=== PATIENT | female | born 1990 | race Caucasian/White ===

== ENCOUNTER 2016-08-06 19:05 | Emergency (ER) | payer BC ==
[2016-08-06] MEDS ORDERED: Sodium Chloride 0.9% 1,000 ML IV ONE ×2 (19:28→20:22)
[2016-08-06] MEDS ORDERED: Ondansetron 4 MG/2 ML SDV IVPUSH ONE (19:29)
--- NOTE | 2016-08-06 19:31 | EDM.PDOC ---
ED HPI GI/ABDOMINAL - General Chief Complaint: Gastrointestinal Problem Stated Complaint: VOMITING Time Seen by Provider: 08/06/16 19:15 Source of Information: Reports: Patient History Limitations: Reports: No limitations - History of Present Illness INITIAL COMMENTS - FREE TEXT/NARRATIVE: Presents reporting a 12 hour history of nausea vomiting, diarrhea, headache. He denies abdominal pain or fever, personal or family history of renal stones, dysuria, , ill contacts, unusual or different food ingestion or foreign travel. Her daughter had the same symptoms for short time on Friday. - Related Data Allergies/ADRs: Allergies Allergy/AdvReac Type Severity Reaction Status Date / Time Penicillins Allergy Airway Verified 08/06/16 19:12 Tightness Home Meds: Home Meds . [No Known Home Meds] 08/06/16 [History] Past Medical History - Past Health History Medical/Surgical History: Denies Medical/Surgical History Respiratory History: Reports: Asthma, Bronchitis, recurrent Psychiatric History: Reports: Depression - Infectious Disease History Infectious Disease History: Reports: Chicken pox Social & Family History - Family History Cardiac: Reports: High cholesterol, Hypertension Musculoskeletal: Reports: Other (see below) Other Musculoskeletal Family History: multiple sclurosis Neurological: Reports: Alzheimers disease - Tobacco Use Smoking Status *Q: Never Smoker - Recreational Drug Use Recreational Drug Use: No ED ROS GENERAL - Review of Systems Review Of Systems: ROS reveals no pertinent complaints other than HPI. ED EXAM, GI/ABD - Physical Exam Exam: See Below Exam Limited By: No limitations General Appearance: alert, no apparent distress Ears: normal external exam Nose: normal inspection Throat/Mouth: Normal inspection Head: atraumatic, normocephalic Neck: normal inspection Respiratory/Chest: no respiratory distress, lungs clear, normal breath sounds Cardiovascular: normal peripheral pulses, regular rate, rhythm, no murmur GI/Abdominal: soft, no distention, tenderness (mild diffuse--mostly lower which she relates to retching). No: guarding, rebound, rigidity Back Exam: normal inspection Extremities: normal inspection Neurological: alert, oriented Psychiatric: normal affect, normal mood Skin Exam: Warm, Dry, Intact, Normal color, No rash Lymphatic: no adenopathy Course - Vital Signs Last Recorded V/S: Last Vital Signs Temp 36.6 C 08/06/16 19:14 Pulse 87 08/06/16 19:14 Resp 16 08/06/16 19:14 BP 123/67 08/06/16 19:14 Pulse Ox 98 08/06/16 19:14 - Orders/Labs/Meds Orders: Active Orders 24 hr Category Date Time Status Sodium Chloride 0.9% [Normal Saline] 1,000 ml Med 08/06/16 19:28 Ordered IV .BOLUS Medication Orders Sodium Chloride (Normal Saline) 1,000 mls @ 999 mls/hr IV .BOLUS ONE Stop: 08/06/16 20:28 Last Admin: 08/06/16 19:49 Dose: 999 mls/hr Labs: Laboratory Tests 08/06/16 08/06/16 08/06/16 Range/Units 19:20 19:20 19:20 WBC 8.17 (4.0-11.0) K/uL RBC 4.30 (4.30-5.90) M/uL Hgb 13.2 (12.0-16.0) g/dL Hct 38.5 (36.0-46.0) % MCV 89.5 (80.0-98.0) fL MCH 30.7 (27.0-32.0) pg MCHC 34.3 (31.0-37.0) g/dL RDW Std Deviation 42.1 (28.0-62.0) fl RDW Coeff of Daniel 13 (11.0-15.0) % Plt Count 178 (150-400) K/uL MPV 10.80 (7.40-12.00) fL Neut % (Auto) 89.4 H (48.0-80.0) % Lymph % (Auto) 4.7 L (16.0-40.0) % Granite % (Auto) 5.8 (0.0-15.0) % Eos % (Auto) 0.0 (0.0-7.0) % Baso % (Auto) 0.1 (0.0-1.5) % Neut # 7.3 H (1.4-5.7) K/uL Lymph # 0.4 L (0.6-2.4) K/uL Granite # 0.5 (0.0-0.8) K/uL Eos # 0.0 (0.0-0.7) K/uL Baso # 0.0 (0.0-0.1) K/uL Nucleated RBC % 0.0 /100WBC Nucleated RBCs # 0 K/uL Sodium 139 (136-146) mmol/L Potassium 3.7 (3.5-5.1) mmol/L Chloride 107 (98-110) mmol/L Carbon Dioxide 21 (21-31) mmol/L BUN 11 (6.0-23.0) mg/dL Creatinine 0.7 (0.6-1.5) mg/dL Est Cr Clr Drug Dosing 117.39 mL/min Estimated GFR (MDRD) > 60.0 ml/min Glucose 125 H (60-110) mg/dL Calcium 8.9 (8.8-10.8) mg/dL Total Bilirubin 0.9 (0.1-1.5) mg/dL AST 12 (5-40) IU/L ALT 9 (8-54) IU/L Alkaline Phosphatase 60 (40-150) Total Protein 7.3 (6.0-8.0) g/dL Albumin 4.0 (3.5-5.0) g/dL Globulin 3.3 (2.0-3.5) g/dL Albumin/Globulin Ratio 1.2 L (1.3-2.8) Lipase 20 (7-80) U/L Urine Color Urine Appearance Urine pH (5.0-8.0) Ur Specific Belle (1.001-1.035) Urine Protein (NEGATIVE) mg/dL Urine Glucose (UA) (NEGATIVE) mg/dL Urine Ketones (NEGATIVE) mg/dL Urine Occult Blood (NEGATIVE) Urine Nitrite (NEGATIVE) Urine Bilirubin (NEGATIVE) Urine Urobilinogen (<2.0) EU/dL Ur Leukocyte Esterase (NEGATIVE) Urine RBC (0-2/HPF) Urine WBC (0-5/HPF) Ur Epithelial Cells (NONE-FEW) Urine Bacteria (NEGATIVE) Urine HCG, Qual NEGATIVE (NEGATIVE) 08/06/16 Range/Units 19:20 WBC (4.0-11.0) K/uL RBC (4.30-5.90) M/uL Hgb (12.0-16.0) g/dL Hct (36.0-46.0) % MCV (80.0-98.0) fL MCH (27.0-32.0) pg MCHC (31.0-37.0) g/dL RDW Std Deviation (28.0-62.0) fl RDW Coeff of Daniel (11.0-15.0) % Plt Count (150-400) K/uL MPV (7.40-12.00) fL Neut % (Auto) (48.0-80.0) % Lymph % (Auto) (16.0-40.0) % Granite % (Auto) (0.0-15.0) % Eos % (Auto) (0.0-7.0) % Baso % (Auto) (0.0-1.5) % Neut # (1.4-5.7) K/uL Lymph # (0.6-2.4) K/uL Granite # (0.0-0.8) K/uL Eos # (0.0-0.7) K/uL Baso # (0.0-0.1) K/uL Nucleated RBC % /100WBC Nucleated RBCs # K/uL Sodium (136-146) mmol/L Potassium (3.5-5.1) mmol/L Chloride (98-110) mmol/L Carbon Dioxide (21-31) mmol/L BUN (6.0-23.0) mg/dL Creatinine (0.6-1.5) mg/dL Est Cr Clr Drug Dosing mL/min Estimated GFR (MDRD) ml/min Glucose (60-110) mg/dL Calcium (8.8-10.8) mg/dL Total Bilirubin (0.1-1.5) mg/dL AST (5-40) IU/L ALT (8-54) IU/L Alkaline Phosphatase (40-150) Total Protein (6.0-8.0) g/dL Albumin (3.5-5.0) g/dL Globulin (2.0-3.5) g/dL Albumin/Globulin Ratio (1.3-2.8) Lipase (7-80) U/L Urine Color YELLOW Urine Appearance CLEAR Urine pH 5.5 (5.0-8.0) Ur Specific Belle >= 1.030 (1.001-1.035) Urine Protein TRACE (NEGATIVE) mg/dL Urine Glucose (UA) NEGATIVE (NEGATIVE) mg/dL Urine Ketones 40 H (NEGATIVE) mg/dL Urine Occult Blood SMALL H (NEGATIVE) Urine Nitrite NEGATIVE (NEGATIVE) Urine Bilirubin SMALL H (NEGATIVE) Urine Urobilinogen 1.0 (<2.0) EU/dL Ur Leukocyte Esterase NEGATIVE (NEGATIVE) Urine RBC 0-3 (0-2/HPF) Urine WBC 1-3 (0-5/HPF) Ur Epithelial Cells FEW (NONE-FEW) Urine Bacteria FEW (NEGATIVE) Urine HCG, Qual (NEGATIVE) Meds: Medications Generic Name Dose Route Start Last Admin Trade Name Freq PRN Reason Stop Dose Admin Sodium Chloride 1,000 mls @ 999 mls/hr 08/06/16 19:28 08/06/16 19:49 Normal Saline IV 08/06/16 20:28 999 mls/hr .BOLUS ONE Administration Discontinued Medications Generic Name Dose Route Start Last Admin Trade Name Freq PRN Reason Stop Dose Admin Ondansetron HCl 4 mg 08/06/16 19:29 08/06/16 19:49 Zofran IVPUSH 08/06/16 19:30 4 mg ONETIME ONE Administration Departure - Departure Time of Disposition: 20:16 Disposition: Home, Self-Care 01 Clinical Impression: Vomiting and diarrhea Forms: ED Department Discharge Additional Instructions: 1. Drink plenty of oral fluids including sports drinks. Advance slowly to BRAT diet (bananas, rice, applesauce, toast) diet advance to regular as tolerated 2. Zofran one every 8 hours as needed for nausea and vomiting 3. return for inability to keep oral fluids down, fevers, abdominal pain or pain with urination. - My Orders Last 24 Hours: My Active Orders 08/06/16 19:28 Sodium Chloride 0.9% [Normal Saline] 1,000 ml IV .BOLUS - Assessment/Plan Last 24 Hours: My Active Orders 08/06/16 19:28 Sodium Chloride 0.9% [Normal Saline] 1,000 ml IV .BOLUS
[2016-08-06 19:59] LABS: CHLORIDE,CL 107 mmol/L (98-110); SODIUM,NA 139 mmol/L (136-146)
[2016-08-06 20:55] VITALS: BP 105/50
== END 2016-08-06 20:53 | disposition home or self-care (01) ==
LOC: MW.ED 19:05
DX: R11.2 Nausea with vomiting, unspecified (principal); R51 Headache; R19.7 Diarrhea, unspecified; Z88.0 Allergy status to penicillin
CPT/HCPCS: 36415; 80053; 81001; 81025; 83690; 85025; 96361; 96374; 99284; J2405; J7040; 99283

== ENCOUNTER → 2016-08-16 | Outpatient (CLI) | payer BC ==
--- NOTE | 2016-08-16 16:42 | CR ---
EXAMINATION: Soft tissue neck HISTORY: Dysphonia COMPARISON: None TECHNIQUE: AP and lateral views FINDINGS: The epiglottis appears normal. The pretracheal soft tissues are within normal limits. The adenoid soft tissues appear normal. The visualized osseous structures are unremarkable. The subglott ic trachea is normal in caliber. IMPRESSION: Unremarkable soft tissue neck.
== END ==
LOC: MW.CHFP 09:30
PROVIDERS: ATTEND Student in an Organized Health Care Education/Training Program
DX: R49.0 Dysphonia (principal); J02.9 Acute pharyngitis, unspecified
CPT/HCPCS: 70360; 70360-26; 87081; 87880

== ENCOUNTER 2017-03-24 14:21 | Day surgery (SDC) | payer BC ==
[2017-03-24] MEDS ORDERED: Lactated Ringers 1,000 ML IV SCH (14:30)
--- NOTE | 2017-03-24 14:50 | PCM.PREANE ---
Preanesthetic Assessment - Anesthesia/Transfusion/Family Hx Anesthesia History: No Prior Anesthesia Family History of Anesthesia Reaction: No Transfusion History: No Prior Transfusion(s) - Review of Systems General: No Symptoms Pulmonary: No Symptoms Cardiovascular: No Symptoms Gastrointestinal: No Symptoms Neurological: No Symptoms Other: Reports: Anxiety - Physical Assessment NPO Status Date: 03/24/17 (0600 pumpkin bread) O2 Sat by Pulse Oximetry: 100 Respiratory Rate: 16 Vital Signs: Last Vital Signs Temp 37.0 C 03/24/17 14:44 Pulse 70 03/24/17 14:44 Resp 16 03/24/17 14:44 BP 97/53 L 03/24/17 14:44 Pulse Ox 100 03/24/17 14:44 Height: 1.65 m Weight: 74.843 kg ASA Class: 2 Mental Status: Alert & Oriented x3 Airway Class: Mallampati = 2 Dentition: Reports: Normal Dentition ROM/Head Extension: Full Lungs: Clear to Auscultation, Normal Respiratory Effort Cardiovascular: Regular Rate, Regular Rhythm - Allergies Allergies/Adverse Reactions: Allergies Allergy/AdvReac Type Severity Reaction Status Date / Time Penicillins Allergy Itching Verified 03/24/17 12:25 - Anesthesia Plan Pre-Op Medication Ordered: None - Acknowledgements Anesthesia Type Planned: General Anesthesia Pt an Appropriate Candidate for the Planned Anesthesia: Yes Alternatives and Risks of Anesthesia Discussed w Pt/Guardian: Yes Pt/Guardian Understands and Agrees with Anesthesia Plan: Yes PreAnesthesia Questionnaire - Past Health History Medical/Surgical History: Denies Medical/Surgical History HEENT History: Reports: None Other HEENT History: wears glasses Cardiovascular History: Reports: None Respiratory History: Reports: Asthma, Bronchitis, Recurrent Gastrointestinal History: Reports: None Genitourinary History: Reports: None [employer] History: Reports: Musculoskeletal History: Reports: None Other Musculoskeletal History: hx of fx left clavicle at Neurological History: Reports: Concussion, Other (See Below) Other Neuro History: some motion sickness Psychiatric History: Reports: Anxiety Other Psychiatric History: not currently taking any meds Endocrine/Metabolic History: Reports: Other (See Below) Other Endocrine/Metabolic History: Hashimotos disease Hematologic History: Reports: None Dermatologic History: Reports: None - Infectious Disease History Infectious Disease History: Reports: Chicken Pox - SUBSTANCE USE Smoking Status *Q: Never Smoker Recreational Drug Use History: No - HOME MEDS Home Medications: Home Meds . [No Known Home Meds] 03/24/17 [History] - CURRENT (IN HOUSE) MEDS Current Meds: Current Medications Lactated Ringer's (Ringers, Lactated) 1,000 mls @ 125 mls/hr IV ASDIRECTED [facility] Last Admin: 03/24/17 14:47 Dose: 125 mls/hr
[2017-03-24] MEDS ORDERED: Lidocaine 2% 5 ML SDV ONE (15:48)
[2017-03-24] MEDS ORDERED: Propofol 200 MG/20 ML SDV ONE (15:48)
[2017-03-24] MEDS ORDERED: Ondansetron 4 MG/2 ML SDV ONE (15:48)
[2017-03-24] MEDS ORDERED: Midazolam 1 MG/ML 2 ML SDV ONE (15:48)
[2017-03-24] MEDS ORDERED: fentaNYL 250 MCG/5 ML SDV ONE (15:48)
[2017-03-24] MEDS ORDERED: Methylergonovine 0.2 MG/1 ML Amp ONE (16:43)
[2017-03-24] MEDS ORDERED: Ketorolac 30 MG/ML SDV IVPUSH PRN (16:50)
[2017-03-24] MEDS ORDERED: Promethazine 25 MG/ML SDV IM PRN (16:50)
[2017-03-24] MEDS ORDERED: Morphine 4 MG/ML Syringe IVPUSH PRN (16:50)
[2017-03-24] MEDS ORDERED: Ondansetron 4 MG/2 ML SDV IVPUSH PRN (16:50)
[2017-03-24] MEDS ORDERED: Acetaminophen/oxyCODONE 325-5 MG Tab PO PRN ×2 (16:50)
[2017-03-24] MEDS ORDERED: Ketorolac 30 MG/ML SDV IVPUSH ONE (16:50)
[2017-03-24] MEDS ORDERED: Morphine 2 MG/ML Syringe IVPUSH PRN (16:50)
--- NOTE | 2017-03-24 16:53 | PCM.DCSUM1 ---
Discharge Summary - Discharge Data Discharge Date: 03/24/17 Discharge Disposition: Home, Self-Care 01 Condition: Good - Patient Summary/Data Operative Procedure(s) Performed: D&E - Patient Instructions Diet: Usual Diet as Tolerated Activity: As Tolerated Driving: Do Not Drive Showering/Bathing: September Shower Notify Provider of: Fever, Increased Pain - Discharge Plan Home Medications: Home Meds . [No Known Home Meds] 03/24/17 [History] - General Info Date of Service: 03/24/17 Functional Status: Reports: Pain Controlled - Review of Systems General: Reports: No Symptoms HEENT: Reports: No Symptoms Pulmonary: Reports: No Symptoms Cardiovascular: Reports: No Symptoms Gastrointestinal: Reports: No Symptoms Genitourinary: Reports: No Symptoms Musculoskeletal: Reports: No Symptoms Skin: Reports: No Symptoms Neurological: Reports: No Symptoms Psychiatric: Reports: No Symptoms - Patient Data Vitals - Most Recent: Last Vital Signs Temp 37.0 C 03/24/17 14:44 Pulse 70 03/24/17 14:44 Resp 16 03/24/17 14:50 BP 97/53 L 03/24/17 14:44 Pulse Ox 100 03/24/17 14:50 Weight - Most Recent: 74.843 kg Lab Results - Last 24 hrs: Laboratory Results - last 24 hr 03/24/17 03/24/17 Range/Units 14:50 14:50 WBC 7.45 (4.0-11.0) K/uL RBC 4.21 L (4.30-5.90) M/uL Hgb 13.2 (12.0-16.0) g/dL Hct 37.4 (36.0-46.0) % MCV 88.8 (80.0-98.0) fL MCH 31.4 (27.0-32.0) pg MCHC 35.3 (31.0-37.0) g/dL RDW Std Deviation 41.6 (28.0-62.0) fl RDW Coeff of Daniel 13 (11.0-15.0) % Plt Count 202 (150-400) K/uL MPV 10.20 (7.40-12.00) fL Blood Type O POSITIVE Antibody Screen NEGATIVE Med Orders - Current: Current Medications Lactated Ringer's (Ringers, Lactated) 1,000 mls @ 125 mls/hr IV ASDIRECTED [facility] Last Admin: 03/24/17 14:47 Dose: 125 mls/hr Ketorolac Tromethamine (Toradol) 30 mg IVPUSH ONETIME ONE Stop: 03/24/17 16:51 Ketorolac Tromethamine (Toradol) 30 mg IVPUSH Q6H PRN PRN Reason: Pain (severe 7-10) Stop: 03/29/17 16:50 Morphine Sulfate (Morphine) 2 mg IVPUSH Q2H PRN PRN Reason: Pain (severe 7-10) Morphine Sulfate (Morphine) 4 mg IVPUSH Q2H PRN PRN Reason: Pain (severe 7-10) Ondansetron HCl (Zofran) 4 mg IVPUSH Q6H PRN PRN Reason: Nausea/Vomiting Oxycodone/Acetaminophen (Percocet 325-5 Mg) 1 tab PO Q4H PRN PRN Reason: Pain (moderate 4-6) Oxycodone/Acetaminophen (Percocet 325-5 Mg) 2 tab PO Q4H PRN PRN Reason: Pain (moderate 4-6) Promethazine HCl (Phenergan) 25 mg IM Q6H PRN PRN Reason: Nausea/Vomiting Discontinued Medications Fentanyl (Sublimaze) Confirm Administered Dose 250 mcg .ROUTE .STK-MED ONE Stop: 03/24/17 15:49 Glycopyrrolate () Confirm Administered Dose 1 mg .ROUTE .STK-MED ONE Stop: 03/24/17 16:35 Lidocaine (Xylocaine-Mpf 2%) Confirm Administered Dose 5 ml .ROUTE .STK-MED ONE Stop: 03/24/17 15:49 Methylergonovine Maleate (Methergine) Confirm Administered Dose 0.2 mg .ROUTE .STK-MED ONE Stop: 03/24/17 16:44 Midazolam HCl (Versed 1 Mg/Ml) Confirm Administered Dose 2 mg .ROUTE .STK-MED ONE Stop: 03/24/17 15:49 Ondansetron HCl (Zofran) Confirm Administered Dose 4 mg .ROUTE .STK-MED ONE Stop: 03/24/17 15:49 Propofol (Diprivan 20 Ml) Confirm Administered Dose 200 mg .ROUTE .STK-MED ONE Stop: 03/24/17 15:49 - Exam General: Reports: Alert, Oriented HEENT: Reports: Pupils Equal, Pupils Reactive, EOMI, Mucous Membr. Moist/[place] Neck: Reports: Supple Lungs: Reports: Clear to Auscultation, Normal Respiratory Effort Cardiovascular: Reports: Regular Rate, Regular Rhythm GI/Abdominal Exam: Normal Bowel Sounds, Soft, Non-Tender, No Organomegaly, No Distention, No Abnormal Bruit, No Mass, Pelvis Stable (Female) Exam: Normal External Exam, Normal Speculum Exam, Normal Bimanual Exam Rectal (Female) Exam: Normal Exam, Normal Rectal Tone Back Exam: Reports: Normal Inspection, Full Range of Motion Extremities: Normal Inspection, Normal Range of Motion, Non-Tender, No Pedal Edema, Normal Capillary Refill Skin: Reports: Warm, Dry, Intact Wound/Incisions: Reports: Healing Well Neurological: Reports: No New Focal Deficit Psy/Mental Status: Reports: Alert, Normal Affect, Normal Mood *Q Meaningful Use (DIS) - VTE *Q VTE Criteria *Q: - Stroke *Q Stroke Criteria *Q: - AMI *Q AMI Criteria *Q:
--- NOTE | 2017-03-24 16:53 | PCM.OPNOTE ---
- General Post-Op/Procedure Note Date of Surgery/Procedure: 03/24/17 Operative Procedure(s): D&E Pre Op Diagnosis: Blighted ovum Post-Op Diagnosis: Same Anesthesia Technique: General LMA Primary Surgeon: Gerardo Sena EBL in mLs: 250 Complications: None Condition: Good
--- NOTE | 2017-03-24 17:19 | PCM.POSTAN ---
POST ANESTHESIA ASSESSMENT - MENTAL STATUS Mental Status: Alert, Oriented - RESPIRATORY Respiratory Status: Respiratory Rate WNL, Airway Patent, O2 Saturation Stable - CARDIOVASCULAR CV Status: Pulse Rate WNL, Blood Pressure Stable - GASTROINTESTINAL GI Status: No Symptoms - PAIN Pain Score: 0 - POST OP HYDRATION Hydration Status: Adequate & Stable
--- NOTE | 2017-03-24 17:20 | PCM48HPAN ---
Post Anesthesia Note - EVALUATION WITHIN 48HRS OF ANESTHETIC Vital Signs in Normal Range: Yes Patient Participated in Evaluation: Yes Respiratory Function Stable: Yes Airway Patent: Yes Cardiovascular Function Stable: Yes Hydration Status Stable: Yes Pain Control Satisfactory: Yes Nausea and Vomiting Control Satisfactory: Yes Mental Status Recovered: Yes
--- NOTE | 2017-03-24 21:56 | OR ---
SURGEON: Gerardo Sena MD DATE OF PROCEDURE: PREOPERATIVE DIAGNOSIS: Blighted ovum. POSTOPERATIVE DIAGNOSIS: Blighted ovum. OPERATION PERFORMED: Dilatation and evacuation. PASTE MIXING SUPERVISOR: OR tech. ANESTHESIA: LMA and general, Kaden Newberry and Dr. Mcnally. ESTIMATED BLOOD LOSS: 250 mL. COMPLICATIONS: None. INDICATION FOR SURGERY: This patient is 26. She is para 1-0-0-1. She came for a new OB visit. However, pelvic ultrasound confirmed there was no cardiac activity and no movement, that was reconfirmed by repeated ultrasound 2 days later. The patient is elected to have a D and E. PROCEDURE IN DETAIL: The patient was brought to the OR properly identified and after adequate level anesthesia with a time-out taken, the patient was prepped and draped in sterile fashion as usual. Straight catheter was used to empty the bladder. Single- tooth tenaculum was applied to the cervix. The cervix sequentially dilated to accommodate #8 cannula. The cannula was placed in endometrial cavity and the products of conception is evacuated completely and uniformly from the uterus. After that, the suction curetting was stopped and gentle curetting with a large curette was done. The endometrial cavity is clean, and then rechecking the endometrial cavity with #8 cannula, seems to be all the products of conception is evacuated. Satisfied with these findings, Methergine is given to the patient to slow down her bleeding and the procedure was ended. Her blood type is O positive. The patient tolerated the procedure well and went to recovery room in stable general condition. RODNEY / YULIA /[id number]
[2017-03-24 22:00] VITALS: BP 95/55
== END 2017-03-24 21:15 | disposition home or self-care (01) ==
LOC: MW.SDS 14:21 → MW.MS 19:44 → MW.SDS 21:15
PROVIDERS: ATTEND Obstetrics & Gynecology
DX: O02.0 Blighted ovum and nonhydatidiform mole (principal); J45.909 Unspecified asthma, uncomplicated; F41.9 Anxiety disorder, unspecified; Z88.0 Allergy status to penicillin
CPT/HCPCS: 36415; 59820; 85027; 86850; 86900; 86901; A9270; J2210; J2250; J2405; J3010; J7120; 00940; 88305; J2704

== ENCOUNTER 2017-05-31 07:47 | Emergency (ER) | payer OTHER ==
[2017-05-31 08:27] VITALS: BP 100/64
[2017-05-31] MEDS ORDERED: Ibuprofen 600 MG Tab PO ONE (08:42)
--- NOTE | 2017-05-31 09:46 | EDM.PDOC ---
ED HPI GENERAL MEDICAL PROBLEM - General Chief Complaint: General Stated Complaint: FEELING WEAK Time Seen by Provider: 05/31/17 08:41 - History of Present Illness INITIAL COMMENTS - FREE TEXT/NARRATIVE: History of present illness: []Patient's been healing over the past week, she did see her primary care week ago for a cough and sore throat was diagnosed with acute laryngitis. Patient states that she's been feeling extremely weak and has not had any improvement in her symptoms. She denies any vomiting, diarrhea or abdominal pain. Her pain in her right ear and throat is worse and states she feels extremely weak and had an episode yesterday she became very short of breath with minimal exertion. She denies any fevers at this time. Review of systems: As per history of present illness and below otherwise all systems reviewed and negative. Past medical history: As per history of present illness and as reviewed below otherwise noncontributory. Surgical history: As per history of present illness and as reviewed below otherwise noncontributory. Social history: No reported history of drug or alcohol abuse. Family history: As per history of present illness and as reviewed below otherwise noncontributory. Physical exam: General: Well developed, well nourished in NAD HEENT: Atraumatic, normocephalic, pupils reactive, negative for conjunctival pallor or scleral icterus, mucous membranes moist, throat clear, neck supple, nontender, trachea midline. Lungs: Clear to auscultation, breath sounds equal bilaterally, chest nontender. Heart: S1S2, regular, negative for clicks, rubs, or JVD. Abdomen: Soft, nondistended, nontender. Negative for masses or hepatosplenomegaly. Negative for costovertebral tenderness. Pelvis: Stable nontender. Genitourinary: Deferred. Rectal: Deferred. Extremities: Atraumatic, negative for cords or calf pain. Neurovascular unremarkable. Neuro: Awake, alert, oriented. Cranial nerves II through XII unremarkable. Cerebellum unremarkable. Motor and sensory unremarkable throughout. Exam nonfocal. Diagnostics: []Strep culture ordered pending results chest x-ray is negative for pneumonia Therapeutics: [] Impression: []Viral syndrome Plan: [] Definitive disposition and diagnosis as appropriate pending reevaluation and review of above. Treatments CORPORATE DEVELOPMENT OFFICER: Reports: Other Medication(s) Other Treatments CORPORATE DEVELOPMENT OFFICER: OTC meds Upper Throat Pain Score (Numeric/FACES): 8 - Related Data Allergies Allergy/AdvReac Type Severity Reaction Status Date / Time Penicillins Allergy Itching Verified 03/24/17 12:25 Home Meds: Home Meds oxyCODONE HCl/Acetaminophen [Percocet 7.5-325 mg Tablet] 1 each PO Q4HR PRN #30 tablet 03/24/17 [Rx] Past Medical History - Past Health History Medical/Surgical History: Denies Medical/Surgical History HEENT History: Reports: None Other HEENT History: wears glasses Cardiovascular History: Reports: None Respiratory History: Reports: Asthma, Bronchitis, Recurrent Gastrointestinal History: Reports: None Genitourinary History: Reports: None 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 Musculoskeletal History: Reports: None Other Musculoskeletal History: hx of fx left clavicle at Neurological History: Reports: Concussion, Other (See Below) Other Neuro History: some motion sickness Psychiatric History: Reports: Anxiety Other Psychiatric History: not currently taking any meds Endocrine/Metabolic History: Reports: Other (See Below) Other Endocrine/Metabolic History: Hashimotos disease Hematologic History: Reports: None Dermatologic History: Reports: None - Infectious Disease History Infectious Disease History: Reports: Chicken Pox Social & Family History - Family History Family Medical History: Noncontributory Cardiac: Reports: High Cholesterol, Hypertension Musculoskeletal: Reports: Other (See Below) Other Musculoskeletal Family History: multiple sclurosis Neurological: Reports: Alzheimers Disease - Tobacco Use Smoking Status *Q: Never Smoker Second Hand Smoke Exposure: No - Caffeine Use Caffeine Use: Reports: Coffee, Soda - Recreational Drug Use Recreational Drug Use: No ED ROS GENERAL - Review of Systems Review Of Systems: See Below ED EXAM, GENERAL - Physical Exam Exam: See Below (See history of present illness) Course - Vital Signs Last Recorded V/S: Last Vital Signs Temp 99.4 F 05/31/17 08:21 Pulse 104 H 05/31/17 08:21 Resp 20 05/31/17 08:21 BP 100/64 05/31/17 08:21 Pulse Ox 98 05/31/17 08:21 - Orders/Labs/Meds Orders: Active Orders 24 hr Category Date Time Status Chest 2V [CR] Stat Exams 05/31/17 08:40 Taken CULTURE STREP A CONFIRMATION [RM] Stat Lab 05/31/17 09:03 Results STREP SCRN A RAPID W CULT CONF [RM] Stat Lab 05/31/17 09:03 Results Meds: Medications Discontinued Medications Generic Name Dose Route Start Last Admin Trade Name Jose PRN Reason Stop Dose Admin Ibuprofen 600 mg 05/31/17 08:42 05/31/17 09:02 Motrin PO 05/31/17 08:43 600 mg ONETIME ONE Administration Departure - Departure Time of Disposition: : Disposition: Home, Self-Care 01 Condition: Good Clinical Impression: Viral syndrome - Discharge Information Referrals: Ana Matias, COTTAGE SUPERVISOR [Primary Care Provider] - Additional Instructions: The following information is given to patients seen in the emergency department who are being discharged to home. This information is to outline your options for follow-up care. We provide all patients seen in our emergency department with a follow-up referral. The need for follow-up, as well as the timing and circumstances, are variable depending upon the specifics of your emergency department visit. If you don't have a primary care physician on staff, we will provide you with a referral. We always advise you to contact your personal physician following an emergency department visit to inform them of the circumstance of the visit and for follow-up with them and/or the need for any referrals to a consulting specialist. The emergency department will also refer you to a specialist when appropriate. This referral assures that you have the opportunity for follow-up care with a specialist. All of these measure are taken in an effort to provide you with optimal care, which includes your follow-up. Under all circumstances we always encourage you to contact your private physician who remains a resource for coordinating your care. When calling for follow-up care, please make the office aware that this follow-up is from your recent emergency room visit. If for any reason you are refused follow-up, please contact the [facility] Emergency Department at and asked to speak to the emergency department charge nurse. Tylenol, Motrin for symptomatic relief, increase fluids follow-up with primary care as needed return if symptoms worsen or change [facility] [address] [place] [id number] - My Orders Last 24 Hours: My Active Orders 05/31/17 08:40 Chest 2V [CR] Stat 05/31/17 09:03 CULTURE STREP A CONFIRMATION [RM] Stat STREP SCRN A RAPID W CULT CONF [] Stat - Assessment/Plan Last 24 Hours: My Active Orders 05/31/17 08:40 Chest 2V [CR] Stat 05/31/17 09:03 CULTURE STREP A CONFIRMATION [RM] Stat STREP SCRN A RAPID W CULT CONF [] Stat
--- NOTE | 2017-06-02 09:48 | CR ---
EXAM DATE: 05/31/17 PATIENT'S AGE: 26 Patient: NELDA COLIN Facility: [place], [place] Site . Site : [id number] Study: XRay Chest [id number]/6/2018 9:13:13 AM Ordering Physician: Doctor Hylton Final Report: INDICATION: Cough. SOB. Pain. TECHNIQUE: PA and lateral. COMPARISON: 04/28/2014. FINDINGS: Lungs and pleural spaces clear. Heart size and pulmonary vasculature within normal limits. No significant osseous abnormality. IMPRESSION: Negative chest. Dictated by Mir Perez MD @ May 31 2017 9:30AM (Electronic Signature) Report Signed by Proxy. ARMANDO
== END 2017-05-31 09:53 | disposition home or self-care (01) ==
LOC: MW.ED 07:47
DX: B34.9 Viral infection, unspecified (principal); Z88.0 Allergy status to penicillin
CPT/HCPCS: 71046; 87081; 87880; 99283; A9270

== ENCOUNTER 2018-09-02 21:10 | Inpatient (IN) | payer BC ==
[2018-09-02] MEDS ORDERED: Carboprost Tromethamine 250 MCG/1 ML Amp IM PRN (22:03)
[2018-09-02] MEDS ORDERED: Misoprostol 200 MCG Tab PO PRN (22:03)
[2018-09-02] MEDS ORDERED: Tranexamic Acid 1,000 MG in Sodium Chloride 0.9% 100 ML IV PRN (22:03)
[2018-09-02] MEDS ORDERED: Sodium Chloride 0.9% 2.5 ML Syringe FLUSH PRN (22:03)
[2018-09-02] MEDS ORDERED: Sodium Chloride 0.9% 10 ML SDV IV PRN (22:03)
[2018-09-02] MEDS ORDERED: Ondansetron 4 MG/2 ML SDV IV PRN (22:03)
[2018-09-02] MEDS ORDERED: Lidocaine 1% 50 ML MDV INJECT PRN (22:03)
[2018-09-02] MEDS ORDERED: Methylergonovine 0.2 MG/1 ML Amp IM PRN (22:03)
[2018-09-02] MEDS ORDERED: Sodium Chloride 0.9% 10 ML Syringe FLUSH PRN (22:03)
[2018-09-02] MEDS ORDERED: Water For Irrigation,Sterile 1,000 ML Container IRR PRN (22:03)
[2018-09-02] MEDS ORDERED: Nalbuphine 10 MG/1 ML Vial IVPUSH PRN (22:03)
[2018-09-02] MEDS ORDERED: Terbutaline 1 MG/ML SDV SUBCUT PRN (22:06)
[2018-09-02] MEDS ORDERED: Misoprostol 25 MCG (1/4 of 100 MCG) Tab VAG PRN (22:06)
[2018-09-02] MEDS ORDERED: Misoprostol 25 MCG (1/4 of 100 MCG) Tab PO PRN (22:06)
[2018-09-02] MEDS ORDERED: Oxytocin/0.9 % Sodium Chloride 30 UNIT/500 ML BAG IV SCH ×2 (22:15)
[2018-09-03] MEDS: Lactated Ringers 1,000 ML IV SCH ×4 (02:30→06:47)
--- NOTE | 2018-09-03 02:45 | PCM.LDHP ---
L&D History of Present Illness - General Date of Service: 09/03/18 Admit Problem/Dx: Patient Status Order with Admit Dx/Problem 09/02/18 22:03 Patient Status [ADT] Routine Admission Diagnosis/Problem Admission Diagnosis/Problem Source of Information: Patient History Limitations: Reports: No Limitations - History of Present Illness Pain Score: 7 Improves with: Reports: None Worsens with: Reports: None Associated Symptoms: Reports: N - Related Data Allergies/Adverse Reactions: Allergies Allergy/AdvReac Type Severity Reaction Status Date / Time Penicillins Allergy Itching Verified 01/31/18 19:28 Home Medications: Home Meds PNV #116/Iron Fumarate/FA/DHA [Expecta Combo Pack] 1 tab PO DAILY 09/02 [History] Past Medical History - Past Health History Medical/Surgical History: Denies Medical/Surgical History HEENT History: Reports: Other (See Below) Other HEENT History: Hashimotos thyroiditis Cardiovascular History: Reports: None Respiratory History: Reports: None Gastrointestinal History: Reports: None Genitourinary History: Reports: None 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: , Spontaneous , Other (See Below) Other OB/BYN History: Had miscarriage with D and C in Musculoskeletal History: Reports: None Other Musculoskeletal History: hx of fx left clavicle at Neurological History: Reports: Concussion, Other (See Below) Other Neuro History: some motion sickness Psychiatric History: Reports: Anxiety Other Psychiatric History: not currently taking any meds Endocrine/Metabolic History: Reports: None, Other (See Below) Other Endocrine/Metabolic History: Hashimotos disease Hematologic History: Reports: None Immunologic History: Reports: None Oncologic (Cancer) History: Reports: None Dermatologic History: Reports: None - Infectious Disease History Infectious Disease History: Reports: Chicken Pox - Past Surgical History HEENT Surgical History: Reports: None Cardiovascular Surgical History: Reports: None Respiratory Surgical History: Reports: None GI Surgical History: Reports: None Female Surgical History: Reports: D&C Musculoskeletal Surgical History: Reports: None Oncologic Surgical History: Reports: None Social & Family History - Family History Family Medical History: Noncontributory Cardiac: Reports: High Cholesterol, Hypertension Respiratory: Reports: None GI: Reports: None : Reports: None OBGYN: Reports: None Musculoskeletal: Reports: Other (See Below) Other Musculoskeletal Family History: Multiple sclerosis Neurological: Reports: Alzheimers Disease Psychiatric: Reports: None Endocrine/Metabolic: Reports: None Hematologic: Reports: None Immunologic: Reports: None Dermatologic: Reports: None Oncologic: Reports: None - Tobacco Use Smoking Status *Q: Never Smoker Second Hand Smoke Exposure: No - Caffeine Use Caffeine Use: Reports: Coffee, Soda - Recreational Drug Use Recreational Drug Use: No H&P Review of Systems - Review of Systems: Review Of Systems: See Below General: Reports: No Symptoms HEENT: Reports: No Symptoms Pulmonary: Reports: No Symptoms Cardiovascular: Reports: No Symptoms Gastrointestinal: Reports: No Symptoms Genitourinary: Reports: No Symptoms Musculoskeletal: Reports: No Symptoms Skin: Reports: No Symptoms Psychiatric: Reports: No Symptoms Neurological: Reports: No Symptoms Hematologic/Lymphatic: Reports: No Symptoms Immunologic: Reports: No Symptoms L&D Exam - Exam Exam: See Below - Vital Signs Weight: 86.409 kg - OB Specific Fundal Height In cm: 39 Contraction Intensity: Moderate Movement: Active Heart Tones: Present Presentation: Vertex - Geiger Score Geiger Score Cervix Position: Anterior Geiger Score Consistency: Soft Geiger Score Effacement: 51-70% Geiger Score Dilation: 3-4 cm Geiger Score Infant's Station: -3 Geiger Score Total: 8 - Exam General: Alert, Oriented HEENT: PERRLA, Conjunctiva Clear, EACs Clear, EOMI, Hearing Intact, Mucosa Moist & Cos Cob, Nares Patent, Normal Nasal Septum, Posterior Pharynx Clear, TMs Clear Neck: Supple, Trachea Midline Lungs: Clear to Auscultation, Normal Respiratory Effort Cardiovascular: Regular Rate, Regular Rhythm GI/Abdominal Exam: Normal Bowel Sounds, Soft, Non-Tender, No Organomegaly, No Distention, No Abnormal Bruit, No Mass, Pelvis Stable Rectal Exam: Normal Exam, Normal Rectal Tone Genitourinary: Normal external exam, Normal bimanual exam, Normal speculum exam Back Exam: Normal Inspection, Full Range of Motion Extremities: Normal Inspection, Normal Range of Motion, Non-Tender, No Pedal Edema, Normal Capillary Refill Skin: Warm, Dry, Intact Neurological: Cranial Nerves Intact, Reflexes Equal Bilateral Psychiatric: Alert, Normal Affect, Normal Mood - Patient Data Lab Results Last 24 hrs: Laboratory Results - last 24 hr 09/02/18 09/02/18 Range/Units 22:26 22:26 WBC 10.00 (4.0-11.0) K/uL RBC 3.62 L (4.30-5.90) M/uL Hgb 10.0 L (12.0-16.0) g/dL Hct 30.4 L (36.0-46.0) % MCV 84.0 (80.0-98.0) fL MCH 27.6 (27.0-32.0) pg MCHC 32.9 (31.0-37.0) g/dL RDW Std Deviation 45.0 (28.0-62.0) fl RDW Coeff of Daniel 15 (11.0-15.0) % Plt Count 177 (150-400) K/uL MPV 11.40 (7.40-12.00) fL Nucleated RBC % 0.0 /100WBC Nucleated RBCs # 0 K/uL Blood Type O POSITIVE Antibody Screen NEGATIVE Result Diagrams: 09/02/18 22:26 Problem List Initiated/Reviewed/Updated: Yes Orders Last 24hrs: Active Orders 24 hr Category Date Time Status Patient Status [ADT] Routine ADT 09/02/18 22:03 Active Bedrest Bathroom Privileges [RC] ASDIRECTED Care 09/02/18 22:06 Active Communication Order [RC] ASDIRECTED Care 09/02/18 22:06 Active Communication Order [RC] ASDIRECTED Care 09/02/18 22:06 Active Communication Order [RC] ASDIRECTED Care 09/02/18 22:06 Active May Shower [RC] ASDIRECTED Care 09/02/18 22:03 Active Notify Provider [RC] PRN Care 09/02/18 22:03 Active Notify Provider [RC] PRN Care 09/02/18 22:06 Active Notify Provider [RC] PRN Care 09/02/18 22:06 Active Notify Provider [RC] STAT Care 09/02/18 22:06 Active Oxygen Therapy [RC] ASDIRECTED Care 09/02/18 22:06 Active Up ad Valery [RC] ASDIRECTED Care 09/02/18 22:03 Active Vital Signs [RC] PER UNIT ROUTINE Care 09/02/18 22:03 Active Vital Signs [RC] PER UNIT ROUTINE Care 09/02/18 22:06 Active Regular Diet [DIET] Diet 09/03/18 Breakfast Active Carboprost Tromethamine [Hemabate DS] Med 09/02/18 22:03 Active 250 mcg IM ASDIRECTED PRN Lactated Ringers [Ringers, Lactated] 1,000 ml Med 09/02/18 22:15 Active IV ASDIRECTED Lidocaine 1% [Xylocaine 1%] Med 09/02/18 22:03 Active 50 ml INJECT ONETIME PRN Methylergonovine [Methergine] Med 09/02/18 22:03 Active 0.2 mg IM ASDIRECTED PRN Nalbuphine [Nubain] Med 09/02/18 22:03 Active 10 mg IVPUSH Q1H PRN Ondansetron [Zofran] Med 09/02/18 22:03 Active 4 mg IV Q6H PRN Oxytocin/0.9 % Sodium Chloride [Oxytocin 30 Unit/500 ML Med 09/02/18 22:15 Active -NS] 30 unit in 500 ml IV TITRATE Oxytocin/0.9 % Sodium Chloride [Oxytocin 30 Unit/500 ML Med 09/02/18 22:15 Active -NS] 30 unit in 500 ml IV TITRATE Sodium Chloride 0.9% [Normal Saline] Med 09/02/18 22:03 Active 10 ml IV ASDIRECTED PRN Sodium Chloride 0.9% [Saline Flush] Med 09/02/18 22:03 Active 10 ml FLUSH ASDIRECTED PRN Sodium Chloride 0.9% [Saline Flush] Med 09/02/18 22:03 Active 2.5 ml FLUSH ASDIRECTED PRN Terbutaline [Brethine] Med 09/02/18 22:06 Active 0.25 mg SUBCUT ASDIRECTED PRN Tranexamic Acid [Cyklokapron] 1,000 mg Med 09/02/18 22:03 Active Sodium Chloride 0.9% [Normal Saline] 100 ml IV ONETIME Water For Irrigation,Sterile [Sterile Water for Med 09/02/18 22:03 Active Irrigation] 1,000 ml IRR ASDIRECTED PRN miSOPROStol [Cytotec] Med 09/02/18 22:03 Active 200 mcg PO ONETIME PRN miSOPROStol [Cytotec] Med 09/02/18 22:06 Active 25 mcg PO Q4H PRN miSOPROStol [Cytotec] Med 09/02/18 22:06 Active 25 mcg VAG Q4H PRN Scalp Electrode [WOMSER] Per Unit Routine Oth 09/02/18 22:03 Ordered Medication Administration Instruction [OM.PC] Q3H Oth 09/02/18 22:15 Ordered Peripheral IV Insertion Adult [OM.PC] Routine Oth 09/02/18 22:03 Ordered Resuscitation Status Routine Resus Stat 09/02/18 22:03 Ordered Medication Orders Carboprost Tromethamine (Hemabate Ds) 250 mcg IM ASDIRECTED PRN PRN Reason: Post Hemorrhage Lactated Ringer's (Ringers, Lactated) 1,000 mls @ 150 mls/hr IV ASDIRECTED LUAN Last Admin: 09/03/18 02:41 Dose: 999 mls/hr Oxytocin/Sodium Chloride (Oxytocin 30 Unit/500 Ml-Ns) 30 unit in 500 mls @ 999 mls/hr IV TITRATE LUAN Tranexamic Acid 1,000 mg/ (Sodium Chloride) 110 mls @ 660 mls/hr IV ONETIME PRN PRN Reason: Bleeding Oxytocin/Sodium Chloride (Oxytocin 30 Unit/500 Ml-Ns) 30 unit in 500 mls @ 2 mls/hr IV TITRATE LUAN; Protocol Lidocaine HCl (Xylocaine 1%) 50 ml INJECT ONETIME PRN PRN Reason: Laceration repair Methylergonovine Maleate (Methergine) 0.2 mg IM ASDIRECTED PRN PRN Reason: Post Hemorrhage Misoprostol (Cytotec) 200 mcg PO ONETIME PRN PRN Reason: Post Hemorrhage Misoprostol (Cytotec) 25 mcg PO Q4H PRN PRN Reason: Cervical Ripening Last Admin: 09/02/18 22:56 Dose: 25 mcg Misoprostol (Cytotec) 25 mcg VAG Q4H PRN PRN Reason: Cervical Ripening Last Admin: 09/02/18 22:56 Dose: 25 mcg Nalbuphine HCl (Nubain) 10 mg IVPUSH Q1H PRN PRN Reason: Pain (severe 7-10) Last Admin: 09/03/18 02:34 Dose: 10 mg Ondansetron HCl (Zofran) 4 mg IV Q6H PRN PRN Reason: Nausea/Vomiting Sodium Chloride (Saline Flush) 10 ml FLUSH ASDIRECTED PRN PRN Reason: Keep Vein Open Sodium Chloride (Saline Flush) 2.5 ml FLUSH ASDIRECTED PRN PRN Reason: Keep Vein Open Sodium Chloride (Normal Saline) 10 ml IV ASDIRECTED PRN PRN Reason: IV Use Sterile Water (Sterile Water For Irrigation) 1,000 ml IRR ASDIRECTED PRN PRN Reason: delivery Terbutaline Sulfate (Brethine) 0.25 mg SUBCUT ASDIRECTED PRN PRN Reason: Tacysystole Assessment/Plan Comment:: [id number] admitted for elective induction.
[2018-09-03] MEDS ORDERED: fentaNYL 100 MCG/2 ML SDV ONE (03:04)
[2018-09-03] MEDS ORDERED: Ropivacaine HCl/PF 100 ML ONE (03:05)
[2018-09-03] MEDS ORDERED: Ropivacaine 0.2% 2 MG/ML 20 ML SDV ONE (03:06)
--- NOTE | 2018-09-03 03:45 | PCM.PREANE ---
Preanesthetic Assessment - Anesthesia/Transfusion/Family Hx Anesthesia History: Prior Anesthesia Reaction Family History of Anesthesia Reaction: No Transfusion History: No Prior Transfusion(s) Type of Transfusion Reactions: Reports: Unknown - Review of Systems General: No Symptoms Pulmonary: No Symptoms Cardiovascular: No Symptoms Gastrointestinal: No Symptoms Neurological: No Symptoms Other: Reports: None (Denies any personal or family history of bleeding or clotting problems) - Physical Assessment Height: 1.65 m Weight: 86.409 kg ASA Class: 2 Mental Status: Alert & Oriented x3 Airway Class: Mallampati = 2 ROM/Head Extension: Full - Lab Values: Laboratory Last Values WBC 10.00 K/uL (4.0-11.0) 09/02/18: RBC 3.62 M/uL (4.30-5.90) L 09/02/18: Hgb 10.0 g/dL (12.0-16.0) L 09/02/18 22: Hct 30.4 % (36.0-46.0) L 09/02/18 22: MCV 84.0 fL (80.0-98.0) 09/02/18 22: MCH 27.6 pg (27.0-32.0) 09/02/18 22: MCHC 32.9 g/dL (31.0-37.0) 09/02/18 22: RDW Std Deviation 45.0 fl (28.0-62.0) 09/02/18 22: RDW Coeff of Daniel 15 % (11.0-15.0) 09/02/18 22: Plt Count 177 K/uL (150-400) 09/02/18 22: MPV 11.40 fL (7.40-12.00) 09/02/18 22: Nucleated RBC % 0.0 /100WBC 09/02/18: Nucleated RBCs # 0 K/uL 09/02/18 22: Blood Type O POSITIVE 09/02/18 22: Antibody Screen NEGATIVE 09/02/18 22:26 - Allergies Allergies/Adverse Reactions: Allergies Allergy/AdvReac Type Severity Reaction Status Date / Time Penicillins Allergy Itching Verified 01/31/18 19:28 - Acknowledgements Anesthesia Type Planned: Epidural Pt an Appropriate Candidate for the Planned Anesthesia: Yes Alternatives and Risks of Anesthesia Discussed w Pt/Guardian: Yes Pt/Guardian Understands and Agrees with Anesthesia Plan: Yes PreAnesthesia Questionnaire - Past Health History Medical/Surgical History: Denies Medical/Surgical History HEENT History: Reports: Other (See Below) Other HEENT History: Hashimotos thyroiditis Cardiovascular History: Reports: None Respiratory History: Reports: None Gastrointestinal History: Reports: None Genitourinary History: Reports: None 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: , Spontaneous , Other (See Below) Other OB/BYN History: Had miscarriage with D and C in Musculoskeletal History: Reports: None Other Musculoskeletal History: hx of fx left clavicle at Neurological History: Reports: Concussion, Other (See Below) Other Neuro History: some motion sickness Psychiatric History: Reports: Anxiety Other Psychiatric History: not currently taking any meds Endocrine/Metabolic History: Reports: None, Other (See Below) Other Endocrine/Metabolic History: Hashimotos disease Hematologic History: Reports: None Immunologic History: Reports: None Oncologic (Cancer) History: Reports: None Dermatologic History: Reports: None - Infectious Disease History Infectious Disease History: Reports: Chicken Pox - Past Surgical History HEENT Surgical History: Reports: None Cardiovascular Surgical History: Reports: None Respiratory Surgical History: Reports: None GI Surgical History: Reports: None Female Surgical History: Reports: D&C Musculoskeletal Surgical History: Reports: None Oncologic Surgical History: Reports: None - SUBSTANCE USE Smoking Status *Q: Never Smoker Tobacco Use Within Last Twelve Months: No Second Hand Smoke Exposure: No Recreational Drug Use History: No - HOME MEDS Home Medications: Home Meds PNV #116/Iron Fumarate/FA/DHA [Expecta Combo Pack] 1 tab PO DAILY 09/02 [History] - CURRENT (IN HOUSE) MEDS Current Meds: Current Medications Carboprost Tromethamine (Hemabate Ds) 250 mcg IM ASDIRECTED PRN PRN Reason: Post Hemorrhage Lactated Ringer's (Ringers, Lactated) 1,000 mls @ 150 mls/hr IV ASDIRECTED [facility] Last Admin: 09/03/18 03:29 Dose: 999 mls/hr Oxytocin/Sodium Chloride (Oxytocin 30 Unit/500 Ml-Ns) 30 unit in 500 mls @ 999 mls/hr IV TITRATE [facility] Tranexamic Acid 1,000 mg/ (Sodium Chloride) 110 mls @ 660 mls/hr IV ONETIME PRN PRN Reason: Bleeding Oxytocin/Sodium Chloride (Oxytocin 30 Unit/500 Ml-Ns) 30 unit in 500 mls @ 2 mls/hr IV TITRATE LUAN; Protocol Lidocaine HCl (Xylocaine 1%) 50 ml INJECT ONETIME PRN PRN Reason: Laceration repair Methylergonovine Maleate (Methergine) 0.2 mg IM ASDIRECTED PRN PRN Reason: Post Hemorrhage Misoprostol (Cytotec) 200 mcg PO ONETIME PRN PRN Reason: Post Hemorrhage Misoprostol (Cytotec) 25 mcg PO Q4H PRN PRN Reason: Cervical Ripening Last Admin: 09/02/18 22:56 Dose: 25 mcg Misoprostol (Cytotec) 25 mcg VAG Q4H PRN PRN Reason: Cervical Ripening Last Admin: 09/02/18 22:56 Dose: 25 mcg Nalbuphine HCl (Nubain) 10 mg IVPUSH Q1H PRN PRN Reason: Pain (severe 7-10) Last Admin: 09/03/18 02:34 Dose: 10 mg Ondansetron HCl (Zofran) 4 mg IV Q6H PRN PRN Reason: Nausea/Vomiting Sodium Chloride (Saline Flush) 10 ml FLUSH ASDIRECTED PRN PRN Reason: Keep Vein Open Sodium Chloride (Saline Flush) 2.5 ml FLUSH ASDIRECTED PRN PRN Reason: Keep Vein Open Sodium Chloride (Normal Saline) 10 ml IV ASDIRECTED PRN PRN Reason: IV Use Sterile Water (Sterile Water For Irrigation) 1,000 ml IRR ASDIRECTED PRN PRN Reason: delivery Terbutaline Sulfate (Brethine) 0.25 mg SUBCUT ASDIRECTED PRN PRN Reason: Tacysystole Discontinued Medications Fentanyl (Sublimaze) Confirm Administered Dose 300 mcg .ROUTE .STK-MED ONE Stop: 09/03/18 03:05 Ropivacaine (Naropin 0.2%) Confirm Administered Dose 100 mls @ as directed .ROUTE .STK-MED ONE Stop: 09/03/18 03:06 Ropivacaine (Naropin 0.2%) Confirm Administered Dose 20 ml .ROUTE .STK-MED ONE Stop: 09/03/18 03:07
[2018-09-03] MEDS ORDERED: Acetaminophen 500 MG Tab PO PRN (13:44)
[2018-09-03] MEDS ORDERED: Lanolin 100% Cream 7 GM Tube TOP PRN (13:44)
[2018-09-03] MEDS ORDERED: Benzocaine/Menthol 20%-0.5% Spray 78 GM Cannister TOP PRN (13:44)
[2018-09-03] MEDS ORDERED: Witch Hazel Medicated Pads 40/Jar TOP PRN (13:44)
[2018-09-03] MEDS ORDERED: Docusate Sodium 100 MG Cap PO PRN (13:44)
[2018-09-03] MEDS ORDERED: oxyCODONE 5 MG Tab PO PRN (13:44)
[2018-09-03] MEDS ORDERED: Ibuprofen 400 MG Tab PO PRN (13:44)
[2018-09-03] MEDS ORDERED: Bisacodyl 10 MG Supp RECTAL PRN (13:44)
[2018-09-03] MEDS: Ibuprofen 800 MG Tab PO PRN ×2 (15:23→22:27)
[2018-09-03] MEDS: Acetaminophen 500 MG Tab PO PRN (16:44)
--- NOTE | 2018-09-03 19:50 | OR ---
SURGEON: Gerardo Sena MD DATE OF PROCEDURE: DELIVERY NOTE: Ms. Noyola is 28 years old. She is para 1-0-0-1. She is 39+ week. She is followed in our clinic primarily by me. She had no complication prenatally. Diabetes screen was normal and her GBS status was negative. She is admitted for elective induction. She was induced with Cytotec and some Pitocin. She had epidural anesthesia when she was 4-5 cm and then the patient required low-dose Pitocin to re-establish her labor. Artificial rupture of the membrane was performed and it was clear fluid and then after that, the patient was able to accomplish normal spontaneous vaginal delivery of a male fetus, cried immediately. score reported to be 8 and 9. The placenta delivered manually without any problem. The estimated blood loss was 300 to 350 mL. There was no perineal or labial laceration and there was no need for episiotomy. monitor was category 1 through the entire process of labor. There was no complication in this process of labor and delivery. RODNEY / YULIA /[id number]
[2018-09-04 08:00] VITALS: BP 98/55
[2018-09-04] MEDS: Ibuprofen 800 MG Tab PO PRN (08:33)
[2018-09-04] MEDS: Acetaminophen 500 MG Tab PO PRN (08:34)
--- NOTE | 2018-09-04 08:39 | PCM.PNPP ---
- General Info Date of Service: 09/04/18 Functional Status: Reports: Pain Controlled - Review of Systems General: Reports: No Symptoms HEENT: Reports: No Symptoms Pulmonary: Reports: No Symptoms Cardiovascular: Reports: No Symptoms Gastrointestinal: Reports: No Symptoms Genitourinary: Reports: No Symptoms Musculoskeletal: Reports: No Symptoms Skin: Reports: No Symptoms Neurological: Reports: No Symptoms Psychiatric: Reports: No Symptoms - General Info Date of Service: 09/04/18 - Patient Data Vital Signs - Most Recent: Last Vital Signs Temp 36.9 C 09/04/18 07:20 Pulse 93 09/04/18 07:20 Resp 17 09/04/18 07:20 BP 98/55 L 09/04/18 07:20 Pulse Ox 97 09/04/18 07:20 Weight - Most Recent: 86.409 kg Lab Results - Last 24 Hours: Laboratory Results - last 24 hr 09/04/18 Range/Units 04:45 Hgb 7.2 L (12.0-16.0) g/dL Hct 23.0 L (36.0-46.0) % Med Orders - Current: Current Medications Acetaminophen (Tylenol Extra Strength) 500 mg PO Q4H PRN PRN Reason: Pain Acetaminophen (Tylenol Extra Strength) 1,000 mg PO Q4H PRN PRN Reason: Pain Last Admin: 09/04/18 08:34 Dose: 1,000 mg Benzocaine/Menthol (Dermoplast Pain Relief 20%-0.5% [place]) 78 gm TOP ASDIRECTED PRN PRN Reason: Perineal Comfort Measure Last Admin: 09/03/18 16:45 Dose: 1 can Bisacodyl (Dulcolax) 10 mg RECTAL ONETIME PRN PRN Reason: Constipation Carboprost Tromethamine (Hemabate Ds) 250 mcg IM ASDIRECTED PRN PRN Reason: Post Hemorrhage Docusate Sodium (Colace) 100 mg PO BID PRN PRN Reason: Constipation Emollient Ointment (Lansinoh Hpa) 0 gm TOP ASDIRECTED PRN PRN Reason: Sore Nipples Lactated Ringer's (Ringers, Lactated) 1,000 mls @ 150 mls/hr IV ASDIRECTED LUAN Last Admin: 09/03/18 06:47 Dose: 150 mls/hr Oxytocin/Sodium Chloride (Oxytocin 30 Unit/500 Ml-Ns) 30 unit in 500 mls @ 999 mls/hr IV TITRATE LUAN Tranexamic Acid 1,000 mg/ (Sodium Chloride) 110 mls @ 660 mls/hr IV ONETIME PRN PRN Reason: Bleeding Oxytocin/Sodium Chloride (Oxytocin 30 Unit/500 Ml-Ns) 30 unit in 500 mls @ 2 mls/hr IV TITRATE LUAN; Protocol Last Titration: 09/03/18 12:23 Dose: 10 munits/min, 10 mls/hr Ibuprofen (Motrin) 400 mg PO Q4H PRN PRN Reason: Pain Ibuprofen (Motrin) 800 mg PO Q6H PRN PRN Reason: Pain Last Admin: 09/04/18 08:33 Dose: 800 mg Lidocaine HCl (Xylocaine 1%) 50 ml INJECT ONETIME PRN PRN Reason: Laceration repair Methylergonovine Maleate (Methergine) 0.2 mg IM ASDIRECTED PRN PRN Reason: Post Hemorrhage Last Admin: 09/03/18 13:57 Dose: 0.2 mg Misoprostol (Cytotec) 200 mcg PO ONETIME PRN PRN Reason: Post Hemorrhage Misoprostol (Cytotec) 25 mcg PO Q4H PRN PRN Reason: Cervical Ripening Last Admin: 09/02/18 22:56 Dose: 25 mcg Misoprostol (Cytotec) 25 mcg VAG Q4H PRN PRN Reason: Cervical Ripening Last Admin: 09/02/18 22:56 Dose: 25 mcg Nalbuphine HCl (Nubain) 10 mg IVPUSH Q1H PRN PRN Reason: Pain (severe 7-10) Last Admin: 09/03/18 02:34 Dose: 10 mg Ondansetron HCl (Zofran) 4 mg IV Q6H PRN PRN Reason: Nausea/Vomiting Last Admin: 09/03/18 13:01 Dose: 4 mg Oxycodone HCl (Oxycodone) 5 mg PO Q2H PRN PRN Reason: Pain Sodium Chloride (Saline Flush) 10 ml FLUSH ASDIRECTED PRN PRN Reason: Keep Vein Open Sodium Chloride (Saline Flush) 2.5 ml FLUSH ASDIRECTED PRN PRN Reason: Keep Vein Open Sodium Chloride (Normal Saline) 10 ml IV ASDIRECTED PRN PRN Reason: IV Use Sterile Water (Sterile Water For Irrigation) 1,000 ml IRR ASDIRECTED PRN PRN Reason: delivery Terbutaline Sulfate (Brethine) 0.25 mg SUBCUT ASDIRECTED PRN PRN Reason: Tacysystole Witch Kathia (Tucks) 1 pad TOP ASDIRECTED PRN PRN Reason: comfort care Discontinued Medications Fentanyl (Sublimaze) Confirm Administered Dose 300 mcg .ROUTE .STK-MED ONE Stop: 09/03/18 03:05 Ropivacaine (Naropin 0.2%) Confirm Administered Dose 100 mls @ as directed .ROUTE .STK-MED ONE Stop: 09/03/18 03:06 Ropivacaine (Naropin 0.2%) Confirm Administered Dose 20 ml .ROUTE .STK-MED ONE Stop: 09/03/18 03:07 - Interaction Disposition, : [place] in Room with Family Infant Interaction: Holding Infant Feeding: Attempted ; Nursed Fair/Poor Support Person: - Recovery Exam Fundal Tone: Firm Fundal Level: 1 Fingerbreadths Below Umbilicus Fundal Placement: Midline Lochia Amount: Scant Lochia Color: Rubra/Red Perineum Description: Intact, Minimal Bruising/Swelling Episiotomy/Laceration: None Bladder Status: Voiding Urinary Elimination: Voided - Exam General: Alert, Oriented HEENT: Pupils Equal Neck: Supple Lungs: Clear to Auscultation, Normal Respiratory Effort Cardiovascular: Regular Rate, Regular Rhythm GI/Abdominal Exam: Normal Bowel Sounds, Soft, Non-Tender, No Organomegaly, No Distention, No Abnormal Bruit, No Mass, Pelvis Stable Extremities: Normal Inspection, Normal Range of Motion, Non-Tender, No Pedal Edema, Normal Capillary Refill Skin: Warm, Dry, Intact Wound/Incisions: Healing Well Neurological: No New Focal Deficit Psy/Mental Status: Alert, Normal Affect, Normal Mood - Problem List Review Problem List Initiated/Reviewed/Updated: Yes - My Orders Last 24 Hours: My Active Orders 09/03/18 13:44 Patient Status [ADT] Routine May Shower [RC] ASDIRECTED Up ad Valery [RC] ASDIRECTED Vital Signs [RC] PER UNIT ROUTINE Acetaminophen [Tylenol Extra Strength] 1,000 mg PO Q4H PRN Acetaminophen [Tylenol Extra Strength] 500 mg PO Q4H PRN Benzocaine/Menthol [Dermoplast Pain Relief 20%-0.5% [place]] 78 gm TOP ASDIRECTED PRN Bisacodyl [Dulcolax] 10 mg RECTAL ONETIME PRN Docusate Sodium [Colace] 100 mg PO BID PRN Ibuprofen [Motrin] 400 mg PO Q4H PRN Ibuprofen [Motrin] 800 mg PO Q6H PRN Lanolin [Lansinoh HPA] See Dose Instructions TOP ASDIRECTED PRN Witch [place]ia [Tucks] 1 pad TOP ASDIRECTED PRN oxyCODONE 5 mg PO Q2H PRN Assess Lochia [WOMSER] Per Unit Routine Assess Uterine Involution [WOMSER] Per Unit Routine Peripheral IV Discontinue [OM.PC] Routine - Assessment Assessment:: day 1 patient doing well minimum bleeding ambulatory. Hemoglobin dropped from 10-7 but the patient is asymptomatic. - Plan Plan:: [id number]+ admitted for elective induction.
--- NOTE | 2018-09-04 13:32 | PCM48HPAN ---
Post Anesthesia Note - EVALUATION WITHIN 48HRS OF ANESTHETIC Vital Signs in Normal Range: Yes Patient Participated in Evaluation: Yes Respiratory Function Stable: Yes Airway Patent: Yes Cardiovascular Function Stable: Yes Hydration Status Stable: Yes Pain Control Satisfactory: Yes Nausea and Vomiting Control Satisfactory: Yes Mental Status Recovered: Yes Resp Rate: 17
== END 2018-09-04 16:20 | disposition home or self-care (01) | DRG 560 ==
LOC: MW.OBCHECK 21:10 → MW.OB 21:18 → MW.OBCHECK 22:03 → MW.OB 22:03 → OBSVTOIN 09-03 13:44 → MW.OB 09-03 18:06
PROVIDERS: ADMIT Obstetrics & Gynecology; ATTEND Obstetrics & Gynecology
PROC: 10E0XZZ Delivery of Products of Conception, External Approach (ICD-10-PCS; principal; 2018-09-03)
PROC: 10907ZC Drainage of Amniotic Fluid, Therapeutic from Products of Conception, Via Natural or Artificial Opening (ICD-10-PCS; 2018-09-03)
PROC: 3E0P7VZ Introduction of Hormone into Female Reproductive, Via Natural or Artificial Opening (ICD-10-PCS; 2018-09-03)
PROC: 3E033VJ Introduction of Other Hormone into Peripheral Vein, Percutaneous Approach (ICD-10-PCS; 2018-09-03)
DX: O80 Encounter for full-term uncomplicated delivery (principal); Z3A.39 39 weeks gestation of pregnancy; Z37.0 Single live birth
CPT/HCPCS: 36415; 51702; 59025; 59409; 85014; 85018; 85027; 86850; 86900; 86901; A9270-GY; J2210; J2300; J2405; J2590; J7120

== ENCOUNTER 2020-02-05 17:48 | Emergency (ER) | payer BC, OTHER ==
[2020-02-05] MEDS ORDERED: Ketorolac 60 MG/2 ML SDV IM ONE (18:39)
[2020-02-05] MEDS ORDERED: Orphenadrine 60 MG/2 ML Inj IM ONE (18:39)
[2020-02-05] MEDS ORDERED: predniSONE 20 MG Tab PO ONE (18:39)
--- NOTE | 2020-02-05 18:57 | EDM.PDOC ---
ED HPI GENERAL MEDICAL PROBLEM - General Chief Complaint: Back Pain or Injury Stated Complaint: lower back pain Time Seen by Provider: 02/05/20 18:24 Source of Information: Reports: Patient History Limitations: Reports: No Limitations - History of Present Illness INITIAL COMMENTS - FREE TEXT/NARRATIVE: HISTORY AND PHYSICAL: History of present illness: Patient is a 29-year-old female who presents to the emergency room with complaints of low lumbar back pain that radiates down both glutes. She states she has had similar pain ever since eighth grade and has seen primary care providers for this although has never had an x-ray. She denies any injury, trauma or falls. Denies any numbness, weakness, saddle paresthesias, urinary or fecal incontinence. Patient denies any fever, chills, headache, change in vision, syncope or near syncope. Denies any chest pain, back pain, shortness of breath or cough. Denies any abdominal pain, nausea, vomiting, diarrhea, constipation or dysuria. Has not noted any blood in urine or stool. No concerns of . Patient has been eating and drinking appropriately. Review of systems: As per history of present illness and below otherwise all systems reviewed and negative. Past medical history: As per history of present illness and as reviewed below otherwise noncontributory. Surgical history: As per history of present illness and as reviewed below otherwise noncontributory. Social history: See social history for further information Family history: As per history of present illness and as reviewed below otherwise non contributory. Physical exam: General: Well developed and well nourished. Alert and orientated x 3. Nontoxic in appearance and in no acute distress. Vital signs are stable and have been reviewed by me. Nursing notes were reviewed. HEENT: Atraumatic, normocephalic, pupils equal and reactive bilaterally, negative for conjunctival pallor or scleral icterus, mucous membranes moist, TMs normal bilaterally, throat clear, neck supple, nontender, trachea midline. No drooling or trismus noted. No meningeal signs. No hot potato voice noted. Lungs: Clear to auscultation, breath sounds equal bilaterally, chest nontender. Normal work of breathing, no accessory muscles used. Heart: S1S2, regular rate and rhythm without overt murmur Abdomen: Soft, nondistended, nontender. Negative for masses or hepatos plenomegaly. Negative for costovertebral tenderness. C-spine/Back: No pinpoint vertebral tenderness upon palpation. No crepitus, step-offs or obvious deformities. Bilateral paraspinous muscular tenderness in the lumbar region patient is ambulatory into the emergency room without difficulty or deficit. Able to rock back on heels and walk on toes. Denies any urinary or fecal incontinence. Denies any numbness, tingling or saddle paresthesia. No concerns of serious infection, fracture or cord compression, or cauda equina syndrome. Deep tendon reflexes brisk bilaterally. Skin: Intact, warm, dry. No lesions or rashes noted. Hematologic: No petechiae or purpra. Mucosa appropriate color and normal nail bed color and refill. Extremities: Atraumatic, moves all extremities per self without difficulty or deficits, negative for cords or calf pain. Neurovascular unremarkable. Neuro: Awake, alert, oriented. Cranial nerves II through XII unremarkable. Cerebellum unremarkable. Motor and sensory unremarkable throughout. Exam nonfocal. Psychiatric: Mood and affect are appropriate. Normal thought process. Answering questions appropriately. Notes: X-ray shows mild bordering on moderate loss of intervertebral disc height at L4- L5. Sequela of more remote ring apophyseal injury at L5 with limbus vertebrae. Slight posterior listhesis on L5 on S1. She does have a urinary tract infection as well. She does not have any concerns with starting her stream or dysuria, will treat with antibiotics. No concerns for STDs or kidney stones. I have spoken with the patient/caregiver and discussed today's findings, in addition to providing specific details for plan of care. Reassessment at the time of disposition demonstrates that the patient is in no acute distress. The patient has remained stable throughout the entire ED visit and is without objective evidence for acute process requiring urgent intervention or hospitalization. The patient is stable for discharge, counseling was provided as , and we discussed in great detail signs and symptoms that would prompt them to return to the Emergency Department. Medication, follow up and supportive care measures were reviewed and discussed. Voices understanding and is agreeable to plan of care. Denies any further questions or concerns at this time. Diagnostics: UA, hCG U, lumbar x-ray Therapeutics: Flexeril, Toradol, prednisone Prescription: Macrobid, Flexeril Impression: UTI Sciatic back pain Plan: 1. X-ray shows some loss of intervertebral disc height, your x-ray report is printed in your packet. There are no acute findings that require immediate intervention although it is something for you to be aware of. Your urine shows you have a UTI that will require antibiotics. Culture has been added, we may call you if your antibiotic needs to be changed. The medication you received today does cause drowsiness, so do not drive for the remaining day 2. When resting please lay on a flat firm surface. Limit your immobility to prevent muscle stiffness. Get up to ambulate/move around/gentle stretching multiple times throughout the day. May alternate heat and ice to the painful areas 3. Tylenol as needed for back pain. Otherwise take the prescribed Flexeril and Ibuprofen as directed. Take Ibuprofen 600mg with the Flexeril three times daily while having pain. Flexeril is a muscle relaxant, this medication may cause drowsiness a do not take it will driving her needing to be functioning outside of the house. 4. Please follow-up with your primary care provider as we discussed. Return to the ED as needed and as discussed. Definitive disposition and diagnosis as appropriate pending reevaluation and review of above. lower back Pain Score (Numeric/FACES): 10 - Related Data Allergies Allergy/AdvReac Type Severity Reaction Status Date / Time Penicillins Allergy Itching Verified 02/05/20 17:56 Home Meds: Home Meds Cyclobenzaprine [Flexeril] 10 mg PO TID PRN 7 Days #21 tab 02/05/20 [Rx] Nitrofurantoin Monohyd/M-Cryst [Macrobid 100 mg Capsule] 100 mg PO BID 5 Days #10 capsule 02/05/20 [Rx] norethindrone-e.estradioL-iron [Junel Fe 1 MG-20 MCG] 1 tab PO ASDIRECTED 02/05/20 [History] Past Medical History - Past Health History Medical/Surgical History: Denies Medical/Surgical History HEENT History: Reports: Other (See Below) Other HEENT History: Hashimotos thyroiditis Cardiovascular History: Reports: None Respiratory History: Reports: None Gastrointestinal History: Reports: None Genitourinary History: Reports: None FILM CLEANER History: Reports: , Spontaneous , Other (See Below) Other FILM CLEANER History: Had miscarriage with D and C in Musculoskeletal History: Reports: None Other Musculoskeletal History: hx of fx left clavicle at Neurological History: Reports: Concussion, Other (See Below) Other Neuro History: some motion sickness Psychiatric History: Reports: Anxiety Other Psychiatric History: not currently taking any meds Endocrine/Metabolic History: Reports: None, Other (See Below) Other Endocrine/Metabolic History: Hashimotos disease Hematologic History: Reports: None Immunologic History: Reports: None Oncologic (Cancer) History: Reports: None Dermatologic History: Reports: None - Infectious Disease History Infectious Disease History: Reports: Chicken Pox - Past Surgical History HEENT Surgical History: Reports: None Cardiovascular Surgical History: Reports: None Respiratory Surgical History: Reports: None GI Surgical History: Reports: None Female Surgical History: Reports: D&C Musculoskeletal Surgical History: Reports: None Oncologic Surgical History: Reports: None Social & Family History - Family History Family Medical History: Noncontributory Cardiac: Reports: High Cholesterol, Hypertension Respiratory: Reports: None GI: Reports: None : Reports: None OBGYN: Reports: None Musculoskeletal: Reports: Other (See Below) Other Musculoskeletal Family History: Multiple sclerosis Neurological: Reports: Alzheimers Disease Psychiatric: Reports: None Endocrine/Metabolic: Reports: None Hematologic: Reports: None Immunologic: Reports: None Dermatologic: Reports: None Oncologic: Reports: None - Tobacco Use Smoking Status *Q: Never Smoker - Caffeine Use Caffeine Use: Reports: Coffee, Soda - Recreational Drug Use Recreational Drug Use: No ED ROS GENERAL - Review of Systems Review Of Systems: Comprehensive ROS is negative, except as noted in HPI. ED EXAM,LOWER BACK PAIN/INJURY - Physical Exam Exam: See Below (See dictation) Course - Vital Signs Last Recorded V/S: Last Vital Signs Temp 98.4 F 02/05/20 17:54 Pulse 84 02/05/20 17:54 Resp 16 02/05/20 17:54 BP 125/72 02/05/20 17:54 Pulse Ox 98 02/05/20 17:54 - Orders/Labs/Meds Orders: Active Orders 24 hr Category Date Time Status CULTURE URINE [RM] Stat Lab 02/05/20 19:00 Received Labs: Laboratory Tests 02/05/20 02/05/20 Range/Units 19:00 19:00 Urine Color YELLOW Urine Appearance SLT CLOUDY Urine pH 6.0 (5.0-8.0) Ur Specific [place] >= 1.030 (1.001-1.035) Urine Protein 100 H (NEGATIVE) mg/dL Urine Glucose (UA) NEGATIVE (NEGATIVE) mg/dL Urine Ketones NEGATIVE (NEGATIVE) mg/dL Urine Occult Blood SMALL H (NEGATIVE) Urine Nitrite NEGATIVE (NEGATIVE) Urine Bilirubin NEGATIVE (NEGATIVE) Urine Urobilinogen 0.2 (<2.0) EU/dL Ur Leukocyte Esterase TRACE H (NEGATIVE) Urine RBC 1-4 (0-2/HPF) Urine WBC 4-7 (0-5/HPF) Ur Epithelial Cells MODERATE (NONE-FEW) Urine Bacteria 1+ H (NEGATIVE) Urine Mucus HEAVY (NONE-MOD) Urine HCG, Qual NEGATIVE (NEGATIVE) Meds: Medications Discontinued Medications Generic Name Dose Route Start Last Admin Trade Name Freq PRN Reason Stop Dose Admin Ketorolac Tromethamine 60 mg 02/05/20 18:39 02/05/20 19:03 Toradol IM 02/05/20 18:40 60 mg ONETIME ONE Administration Orphenadrine Citrate 60 mg 02/05/20 18:39 02/05/20 19:00 Norflex IM 02/05/20 18:40 60 mg ONETIME ONE Administration Prednisone 40 mg 02/05/20 18:39 02/05/20 19:02 Prednisone PO 02/05/20 18:40 40 mg ONETIME ONE Administration Departure - Departure Time of Disposition: 20:01 Disposition: Home, Self-Care 01 Clinical Impression: Back pain of lumbar region with sciatica UTI (urinary tract infection) Qualifiers: Urinary tract infection type: acute cystitis Hematuria presence: with hematuria Qualified Code(s): N30.01 - Acute cystitis with hematuria - Discharge Information Prescriptions: Cyclobenzaprine [Flexeril] 10 mg PO TID PRN 7 Days #21 tab PRN Reason: Muscle Spasm Nitrofurantoin Monohyd/M-Cryst [Macrobid 100 mg Capsule] 100 mg PO BID 5 Days #10 capsule Instructions: Urinary Tract Infection, Adult Referrals: Hipolito Benitez MD [Primary Care Provider] - Forms: ED Department Discharge Additional Instructions: The following information is given to patients seen in the emergency department who are being discharged to home. This information is to outline your options for follow-up care. We provide all patients seen in our emergency department with a follow-up referral. The need for follow-up, as well as the timing and circumstances, are variable depending upon the specifics of your emergency department visit. If you don't have a primary care physician on staff, we will provide you with a referral. We always advise you to contact your personal physician following an emergency department visit to inform them of the circumstance of the visit and for follow-up with them and/or the need for any referrals to a consulting specialist. The emergency department will also refer you to a specialist when appropriate. This referral assures that you have the opportunity for follow-up care with a specialist. All of these measure are taken in an effort to provide you with optimal care, which includes your follow-up. Under all circumstances we always encourage you to contact your private physician who remains a resource for coordinating your care. When calling for follow-up care, please make the office aware that this follow-up is from your recent emergency room visit. If for any reason you are refused follow-up, please contact the [facility] Emergency Department at and asked to speak to the emergency department charge nurse. [facility] Primary Care [address] [place] [id number] [place] [address] Thank you for choosing the [facility] emergency department in [place] for your medical needs today. It was a pleasure caring for you. Today you were seen in the emergency department for back pain. 1. X-ray shows some loss of intervertebral disc height, your x-ray report is printed in your packet. There are no acute findings that require immediate intervention although it is something for you to be aware of. Your urine shows you have a UTI that will require antibiotics. Culture has been added, we may call you if your antibiotic needs to be changed. The medication you received today does cause drowsiness, so do not drive for the remaining day 2. When resting please lay on a flat firm surface. Limit your immobility to prevent muscle stiffness. Get up to ambulate/move around/gentle stretching multiple times throughout the day. May alternate heat and ice to the painful areas 3. Tylenol as needed for back pain. Otherwise take the prescribed Flexeril and Ibuprofen as directed. Take Ibuprofen 600mg with the Flexeril three times daily while having pain. Flexeril is a muscle relaxant, this medication may cause drowsiness a do not take it will driving her needing to be functioning outside of the house. 4. Please follow-up with your primary care provider as we discussed. Return to the ED as needed and as discussed. Sepsis Event Note (ED) - Evaluation Sepsis Screening Result: No Definite Risk - Focused Exam Vital Signs: Vital Signs Temp Pulse Resp BP Pulse Ox 02/05/20 17:54 98.4 F 84 16 125/72 98 - My Orders Last 24 Hours: My Active Orders 02/05/20 19:00 CULTURE URINE [RM] Stat - Assessment/Plan Last 24 Hours: My Active Orders 02/05/20 19:00 CULTURE URINE [RM] Stat
--- NOTE | 2020-02-05 19:44 | CR ---
HISTORY: Back pain. TECHNIQUE: Two views of the lumbar spine. COMPARISON: No prior. FINDINGS: Five lumbar type vertebral bodies. There is mild bordering on moderate loss of intervertebral disc height at L4-L5. [place] along the anterior aspect of the L5 vertebral body compatible with limbus vertebrae and sequelae of remote injury to the ring apophysis of the vertebral body. The lumbar vertebral body height is maintained. Mild posterior listhesis of L5 on S1. Lumbar alignment is otherwise maintained. IMPRESSION: 1. Mild bordering on moderate loss of intervertebral disc height at L4-L5. 2. Sequelae of more remote ring apophyseal injury at L5 with limbus vertebrae. 3. Slight posterior listhesis of L5 on S1. Dictated by Marcial Rojo MD @ 02/05/2020 7:42:38 PM Dictated by: Marcial Rojo MD @ 02/05/2020 19:42:41 (Electronically Signed)
[2020-02-05] MEDS ORDERED: Nitrofurantoin Monohydrate/Macrocrystalline 100 MG Cap PO ONE (20:19)
[2020-02-05 20:28] VITALS: BP 108/64; PULSE 74
== END 2020-02-05 20:15 | disposition home or self-care (01) ==
LOC: MW.ED 17:48
DX: N30.01 Acute cystitis with hematuria (principal); M54.41 Lumbago with sciatica, right side; M54.42 Lumbago with sciatica, left side; Z88.0 Allergy status to penicillin
CPT/HCPCS: 72100; 81001; 81025; 87086; 96372; 99283; A9270; J1885; J2360

== ENCOUNTER 2022-04-10 15:33 | Emergency (ER) | payer BC ==
[2022-04-10] MEDS ORDERED: Lidocaine 1% 5 ML VIAL INJECT ONE (15:59)
[2022-04-10] MEDS ORDERED: Diphtheria,Pertussis(Acell),Tetanus Vaccine 0.5 ML Syringe IM ONE (16:17)
[2022-04-10 16:33] VITALS: BP 107/68; PULSE 60
== END 2022-04-10 16:33 | disposition home or self-care (01) ==
LOC: MW.ED 15:33
DX: S61.411A Laceration without foreign body of right hand, initial encounter (principal); Z23 Encounter for immunization; Z88.0 Allergy status to penicillin; W26.8XXA Contact with other sharp object(s), not elsewhere classified, initial encounter
CPT/HCPCS: 12001; 90471; 90715; 99282-25

== ENCOUNTER 2022-08-23 16:24 | Emergency (ER) | payer BC ==
[2022-08-23 17:23] VITALS: BP 114/67
[2022-08-23 20:06] VITALS: PULSE 81
== END 2022-08-23 20:05 | disposition home or self-care (01) ==
LOC: MW.ED 16:24
DX: M54.41 Lumbago with sciatica, right side (principal); Z88.0 Allergy status to penicillin; Z88.1 Allergy status to other antibiotic agents
CPT/HCPCS: 99283

== ENCOUNTER 2024-09-22 07:53 | Emergency (ER) | payer BC ==
[2024-09-22 08:22] VITALS: BP 120/65; PULSE 80
[2024-09-22 09:09] LABS: APPEARANCE,URINE SLT CLOUDY; BILIRUBIN,URINE NEGATIVE (NEGATIVE); COLOR,URINE YELLOW; GLUCOSE,URINE NEGATIVE (NEGATIVE); KETONES,URINE NEGATIVE (NEGATIVE); LEUKOCYTE ESTERASE,URINE TRACE (NEGATIVE); NITRITE,URINE NEGATIVE (NEGATIVE); OCCULT BLOOD,URINE TRACE-INTACT (NEGATIVE); PROTEIN,URINE NEGATIVE (NEGATIVE); UROBILINOGEN,URINE 0.2 EU/dL (<2.0)
[2024-09-22 09:18] LABS: BASOPHILS ABSOLUTE AUTO 0.01 K/uL (0.00-0.20); BASOPHILS PERCENT AUTO 0.2 % (0.0-1.0); EOSINOPHILS ABSOLUTE AUTO 0.03 K/uL (0.00-0.45); EOSINOPHILS PERCENT AUTO 0.7 % (0.0-6.0); IMMATURE GRAN ABSOLUTE AUTO 0.01 K/uL (0.00-0.05); IMMATURE GRAN PERCENT AUTO 0.2 % (0.0-0.4); LYMPHOCYTES PERCENT AUTO 30.6 % (24.0-44.0); MEAN CORPUSCULAR HEMOGLOBIN 31.8 pg (28.0-32.0); MEAN CORPUSCULAR HGB CONC 34.3 g/dL (32.0-36.0); MEAN CORPUSCULAR VOLUME 92.8 fL (83.0-99.0); MONOCYTES ABSOLUTE AUTO 0.44 K/uL (0.00-0.80); MONOCYTES PERCENT AUTO 9.6 % (0.0-8.0); NEUTROPHILS ABSOLUTE AUTO 2.68 K/uL (1.80-7.70); NEUTROPHILS PERCENT AUTO 58.7 % (41.0-71.0); PLATELET COUNT,PLT 180 K/uL (150-400); RED BLOOD CELL COUNT 3.77 M/uL (4.10-5.30); WHITE BLOOD CELL COUNT,WBC 4.57 K/uL (3.9-11.3)
[2024-09-22 09:32] LABS: RBC,URINE 0-2 (0-2/HPF)
[2024-09-22 09:33] LABS: BACTERIA,URINE 1+ (NEGATIVE); EPITHELIAL CELLS,URINE FEW (NONE-FEW)
[2024-09-22 09:49] LABS: A/G RATIO 1.2 (0.9-1.6); ALBUMIN 3.6 g/dL (3.4-5.0); BILIRUBIN TOTAL 0.5 mg/dL (0.2-1.0); CARBON DIOXIDE,CO2 28.1 mmol/L (21.0-32.0); CREATININE 0.9 mg/dL (0.6-1.0); EST CRCL DRUG DOSING (CG) 80.9 mL/min; PROTEIN TOTAL,TP 6.6 g/dL (6.4-8.2)
== END 2024-09-22 13:05 | disposition home or self-care (01) ==
LOC: MW.ED 07:53
DX: N30.01 Acute cystitis with hematuria (principal); Z79.899 Other long term (current) drug therapy; Z88.0 Allergy status to penicillin; Z88.1 Allergy status to other antibiotic agents
CPT/HCPCS: 36415; 72070; 72070-26; 72100; 72100-26; 80053; 81001; 81025; 85025; 87086; 87088; 87186; 99284